=== PATIENT | male | born 1950 | race Caucasian/White ===

== ENCOUNTER 2022-08-20 18:29 | Inpatient (IN) | payer MEDICARE, MEDICAID ==
[~2022-08-20] VITALS: Ht 167.6 cm; Wt 58.1 kg
[2022-08-20] MEDS ORDERED: vancomycin/NS 1 GM ADD-VANTAGE 250 ML IV ONE (18:55)
[2022-08-20] MEDS ORDERED: normal saline 1000ML IV soln IVB ONE (18:55)
[2022-08-20] MEDS ORDERED: piperacillin/tazo 3.375gm/50ml 50 ML IV ONE (18:55)
[2022-08-20 19:10] LABS: BASOPHILS # (AUTO) 0.2 X10'3 (0-0.2); BASOPHILS % (AUTO) 0.9 % (0-1); EOSINOPHILS % (AUTO) 0.2 % (0-6); HEMATOCRIT 41.9 % (42.0-52.0); HEMOGLOBIN 13.2 g/dl (14.0-17.9); LYMPHOCYTES # (AUTO) 1.9 X10'3 (1.1-4.8); LYMPHOCYTES % (AUTO) 10.4 % (21-51); MEAN CORPUSCULAR HEMOGLOBIN 28.1 PG (27.0-31.0); MEAN CORPUSCULAR HGB CONC 31.6 g/dL (33.0-36.5); MEAN PLATELET VOLUME 8.9 FL (7.4-10.4); MONOCYTES # (AUTO) 1.3 X10'3 (0-0.9); NEUTROPHILS # (AUTO) 15.2 X10'3 (1.8-7.7); NEUTROPHILS % (AUTO) 81.5 % (42-75); PLATELET COUNT 277 X10'3 (140-440); RED CELL DISTRIBUTION WIDTH 16.4 % (11.5-14.5); WHITE BLOOD COUNT 18.7 X10'3 (4.5-11.0)
[2022-08-20] MEDS ORDERED: morphine 4 MG/ML inj SYRINge IV ONE (19:25)
[2022-08-20 19:28] LABS: ALANINE AMINOTRANSFERASE 33 U/L (12-78); ALBUMIN/GLOBULIN RATIO 0.6 (1.1-1.5); ALKALINE PHOSPHATASE 110 IU/L (46-116); ANION GAP 7 (8-16); ASPARTATE AMINO TRANSFERASE 30 U/L (10-37); BILIRUBIN,TOTAL 0.2 MG/DL (0.1-1.0); BLOOD UREA NITROGEN 21 MG/DL (7-18); BUN/CREATININE RATIO 22.8 (5.4-32.0); CALCIUM 9.5 MG/DL (8.5-10.1); CHLORIDE 101 MMOL/L (99-107); CREATININE 0.92 MG/DL (0.60-1.10); GLUCOSE 141 MG/DL (70-104); POTASSIUM 4.6 MMOL/L (3.5-5.1); SODIUM 141 MMOL/L (135-145); TOTAL CARBON DIOXIDE 32.7 MMOL/L (24-32); TOTAL PROTEIN 7.9 G/DL (6.4-8.2); eGFR 81 ML/MIN
[2022-08-20] MEDS ORDERED: iohexol 350MG/ML 100ml bottle IV ONE (20:03)
[2022-08-20] MEDS ORDERED: iohexol 350 MG/ML 50ML vial IV ONE (20:03)
[2022-08-20] MEDS: MESSAGE TO NURSING PO NR (20:20)
[2022-08-20 21:01] LABS: CLARITY,URINE CLEAR (Clear); COLOR,URINE YELLOW (Yellow); GLUCOSE, URINE NEGATIVE (Neg); KETONES,URINE NEGATIVE (Neg); LEUKOCYTE ESTERASE ,URINE NEGATIVE (Neg); NITRITES, URINE NEGATIVE (Neg); OCCULT BLOOD,URINE NEGATIVE (Neg); PH,URINE 7.5 (4.8-8.0); PROTEIN,URINE NEGATIVE (Neg); UROBILINOGEN,URINE 0.2 E.U/dL (0.2-1.0)
[2022-08-20 21:06] LABS: UA COLLECTION TYPE NON-SPECIFIED
[2022-08-21] MEDS ORDERED: METF-1203 PO (00:26)
[2022-08-21] MEDS ORDERED: heparin 10,000 units/1 ML INJ IV PRN (00:35)
[2022-08-21] MEDS ORDERED: insulin Lispro (HumaLOG) vial - multi-dose SQ SCH (00:35)
[2022-08-21] MEDS ORDERED: magnesium Cl slow-release 64mg tablet PO PRN (00:35)
[2022-08-21] MEDS ORDERED: ondansetron/PF 4mg/2ml inj IV PRN (00:35)
[2022-08-21] MEDS ORDERED: dextrose 50%-water 50ml dispensing syringe IV PRN ×2 (00:35)
[2022-08-21] MEDS ORDERED: DEXTROSE 15 GM of carb/4 tabs (each vial/BOTTLE has 4 tablets) PO PRN ×2 (00:35)
[2022-08-21] MEDS ORDERED: PERFLUTREN PROTEIN-A MICROSPHR (Optison) 0.22 MG/ML 3ML VIAL IV ONE (00:35)
[2022-08-21] MEDS ORDERED: magnesium 4gm in 100ml NS 100 ML IV PRN (00:35)
[2022-08-21] MEDS ORDERED: MESSAGE TO PHARMACY PO ONE (00:35)
[2022-08-21] MEDS ORDERED: glucagon, human recombinant 1mg kit SUBCUT PRN (00:35)
[2022-08-21] MEDS: normal saline 1000ml 1,000 ML IV SCH ×3 (00:35→19:33)
[2022-08-21] MEDS ORDERED: HYDROcodone/acetaminophen 5mg/325mg tablet PO PRN (00:35)
[2022-08-21] MEDS ORDERED: heparin 10,000 units/1 ML INJ IV ONE ×2 (00:35→02:30)
[2022-08-21] MEDS ORDERED: heparin 25,000 UNIT/250ml bag 250 ML IV PRN (00:35)
[2022-08-21] MEDS ORDERED: acetaminophen 325mg tablet PO PRN (00:35)
[2022-08-21] MEDS ORDERED: mag hydrox/Alum hydrox/simeth 30ml oral suspension PO PRN (00:35)
[2022-08-21] MEDS ORDERED: magnesium hydroxide 30ml (MOM) UD suspension PO PRN (00:35)
[2022-08-21] MEDS ORDERED: potassium Cl 40MEQ/1/2NS 520ml 520 ML IV PRN (00:35)
[2022-08-21] MEDS ORDERED: potassium Cl 20 mEq SR tablet PO PRN ×2 (00:35)
--- NOTE | 2022-08-21 01:21 | NUR ---
PTT and AM labs drawn and sent at this time, pending verification/prep of heparin setup.
[2022-08-21 01:37] LABS: APTT 30 SECONDS (22-32)
[2022-08-21] MEDS: hydrALAZINE 20mg/ml inj. IV PRN (02:05)
[2022-08-21] MEDS: HYDROcodone/acetaminophen 10/325mg tab PO PRN ×3 (02:11→19:33)
--- NOTE | 2022-08-21 02:53 | NUR ---
Change from cardiac heparin to DVT noted, heparin infusion rate updated on pump and in OCT.
--- NOTE | 2022-08-21 05:54 | NUR ---
Patient with ongoing hypertension, provider nofied, advised new PO daily medication. Verbal order will be entered.
[2022-08-21] MEDS ORDERED: vancomycin/NS 1 GM ADD-VANTAGE 250 ML IV SCH (06:00)
[2022-08-21] MEDS: piperacillin/tazo 3.375gm/50ml 50 ML IV SCH ×2 (07:51→16:03)
[2022-08-21] MEDS: metoprolol succinate 25mg (24-HOUR) SR. Tablet PO SCH (07:51)
[2022-08-21] MEDS: docusate sod 100mg capsule PO SCH ×2 (07:52→19:33)
--- NOTE | 2022-08-21 09:49 | NUR ---
PT B.S 104 ,NO INSULIN NEEDED.
[2022-08-21] MEDS: MESSAGE TO NURSING PO NR (10:00)
[2022-08-21] MEDS: heparin 10,000 units/1 ML INJ IV PRN ×2 (10:06→18:05)
[2022-08-21] MEDS: heparin 25,000 UNIT/250ml bag 250 ML IV PRN (10:08)
[2022-08-21 11:26] LABS: BASOPHILS # (AUTO) 0.1 X10'3 (0-0.2); BASOPHILS % (AUTO) 0.9 % (0-1); EOSINOPHILS # (AUTO) 0.1 X10'3 (0-0.9); EOSINOPHILS % (AUTO) 1.1 % (0-6); HEMATOCRIT 40.9 % (42.0-52.0); HEMOGLOBIN 12.8 g/dl (14.0-17.9); LYMPHOCYTES # (AUTO) 1.4 X10'3 (1.1-4.8); LYMPHOCYTES % (AUTO) 10.4 % (21-51); MEAN CORPUSCULAR HEMOGLOBIN 27.8 PG (27.0-31.0); MEAN CORPUSCULAR HGB CONC 31.3 g/dL (33.0-36.5); MEAN CORPUSCULAR VOLUME 88.8 FL (78-98); MONOCYTES # (AUTO) 0.9 X10'3 (0-0.9); MONOCYTES % (AUTO) 6.9 % (2-12); NEUTROPHILS % (AUTO) 80.7 % (42-75); PLATELET COUNT 255 X10'3 (140-440); RED CELL DISTRIBUTION WIDTH 16.4 % (11.5-14.5); WHITE BLOOD COUNT 13.6 X10'3 (4.5-11.0)
--- NOTE | 2022-08-21 11:47 | NUR ---
WOUND CARE EDDY CHAUDHRY AT BEDSIDE.
[2022-08-21] MEDS ORDERED: FINA5TAB11 PO (13:29)
[2022-08-21] MEDS ORDERED: SERT-433 (13:29)
[2022-08-21] MEDS ORDERED: HYDR-3964 PO (13:29)
[2022-08-21] MEDS ORDERED: FOLI1TAB27 PO (13:29)
[2022-08-21] MEDS ORDERED: ASPI-1397 PO (13:29)
[2022-08-21] MEDS ORDERED: ADV50250 PO (13:31)
[2022-08-21] MEDS ORDERED: FLO0.4C PO (13:31)
--- NOTE | 2022-08-21 16:00 | NUR ---
DR AVILA SPOKE WITH DR SCOTT AND HE WILL COME EVALUATE THE PT FOR SURGERY AND TO WAIT TO FEED PT UNTIL WE KNOW THE PLAN FOR SURGERY.
--- NOTE | 2022-08-21 16:11 | NUR ---
PAUL 2003 RE: BED 16 NEERU, OR DOES NOT HAVE PT ON SCHEDULE, ASHLEE NOT HERE, SHOULD WE KEEP NPO?
--- NOTE | 2022-08-21 16:32 | NUR ---
PRESSURE ULCER EDUCATION: DEFINITION: A pressure ulcer is an area of skin that breaks down when you stay in one position too long. The constant pressure against the skin reduces the blood flow to that area and the affected tissue dies. CAUSES: "Being bedridden or in a wheelchair "Fragile skin "Having a chronic condition, such as diabetes or vascular disease "Inability to move certain parts of your body without assistance "Older age "Incontinence of urine or stool SYMPTOMS: "A reddened area that DOES NOT turn white when pressed on - this can be the beginning of a pressure ulcer "A blister, deep sore or a crater - these can be advanced pressure ulcers FIRST AID: "Relieve the pressure on this area "Keep the area clean and dry "Call your primary doctor if you see any of the above symptoms "DO NOT massage the area "DO NOT use a donut shaped or ring shaped pillow- these actually interfere with the blood flow and cause complications PREVENTION: "Check for pressure ulcers everyday "Change position at least every two hours to relieve pressure "Use items that help relieve pressure- pillows, sheepskin, foam padding, and powders. "Keep skin clean and dry "Eat healthy well balanced meals "Exercise daily IF YOU SEE ANY OF THESE SYMPTOMS WHILE IN THE HOSPITAL - TELL YOUR NURSE IMMEDIATELY. IF YOU SEE ANY OF THESE SYMPTOMS WHILE AT HOME OR HAVE ANY QUESTIONS OR CONCERNS ABOUT PRESSURE ULCERS - CALL YOUR PRIMARY DOCTOR IMMEDIATELY. Addendum: 08/21/22 at 1632 by Dalia Fox LVN Amended: Links added.
[2022-08-21] MEDS: vancomycin/NS 1 GM ADD-VANTAGE 250 ML IV SCH (17:56)
--- NOTE | 2022-08-21 18:32 | NUR ---
Report called to Barry who kindly accepts report for Surg 343, patient cleared for transport.
--- NOTE | 2022-08-21 18:33 | NUR ---
REPORT RECEIVED FROM JET MECHANIC. PATIENT ON THE WAY AND WILL ASSUME CARE WHEN PATIENT ARRIVES.
[2022-08-21 19:00] VITALS: BP 142/85
[2022-08-21] MEDS: insulin glargine (Lantus) pen - multi-dose SQ SCH (21:00)
[2022-08-21 22:00] VITALS: BP 151/55
[2022-08-22] MEDS: piperacillin/tazo 3.375gm/50ml 50 ML IV SCH ×3 (00:35→15:38)
[2022-08-22 00:55] LABS: BASOPHILS # (AUTO) 0.1 X10'3 (0-0.2); BASOPHILS % (AUTO) 0.6 % (0-1); EOSINOPHILS # (AUTO) 0.1 X10'3 (0-0.9); EOSINOPHILS % (AUTO) 0.7 % (0-6); HEMATOCRIT 36.7 % (42.0-52.0); HEMOGLOBIN 11.9 g/dl (14.0-17.9); LYMPHOCYTES # (AUTO) 1.6 X10'3 (1.1-4.8); LYMPHOCYTES % (AUTO) 11.4 % (21-51); MEAN CORPUSCULAR HEMOGLOBIN 28.5 PG (27.0-31.0); MEAN CORPUSCULAR HGB CONC 32.5 g/dL (33.0-36.5); MEAN CORPUSCULAR VOLUME 87.9 FL (78-98); MEAN PLATELET VOLUME 9.3 FL (7.4-10.4); MONOCYTES # (AUTO) 0.8 X10'3 (0-0.9); MONOCYTES % (AUTO) 5.8 % (2-12); NEUTROPHILS # (AUTO) 11.3 X10'3 (1.8-7.7); NEUTROPHILS % (AUTO) 81.5 % (42-75); PLATELET COUNT 257 X10'3 (140-440); RED BLOOD COUNT 4.17 X10'6 (4.70-6.10); RED CELL DISTRIBUTION WIDTH 16.1 % (11.5-14.5); WHITE BLOOD COUNT 13.8 X10'3 (4.5-11.0)
[2022-08-22 01:08] LABS: ALANINE AMINOTRANSFERASE 29 U/L (12-78); ALBUMIN 2.7 G/DL (3.4-5.0); ALBUMIN/GLOBULIN RATIO 0.6 (1.1-1.5); ALKALINE PHOSPHATASE 82 IU/L (46-116); ANION GAP 7 (8-16); ASPARTATE AMINO TRANSFERASE 21 U/L (10-37); BILIRUBIN,TOTAL 0.3 MG/DL (0.1-1.0); BLOOD UREA NITROGEN 13 MG/DL (7-18); BUN/CREATININE RATIO 15.7 (5.4-32.0); CALCIUM 8.9 MG/DL (8.5-10.1); CHLORIDE 103 MMOL/L (99-107); CREATININE 0.83 MG/DL (0.60-1.10); GLUCOSE 182 MG/DL (70-104); MAGNESIUM 1.8 MG/DL (1.5-2.4); POTASSIUM 4.2 MMOL/L (3.5-5.1); SODIUM 140 MMOL/L (135-145); VANCOMYCIN,TROUGH 16.6 UG/ML (6.0-14.0); eGFR > 90 ML/MIN
[2022-08-22] MEDS: heparin 10,000 units/1 ML INJ IV PRN ×3 (01:20→22:36)
[2022-08-22 02:38] LABS: HEMOGLOBIN A1C 7.6 % (4.5-6.2)
[2022-08-22] MEDS ORDERED: VANCOMYCIN LEVEL IV ONE (04:30)
[2022-08-22] MEDS: vancomycin/NS 1 GM ADD-VANTAGE 250 ML IV SCH ×2 (04:55→17:17)
--- NOTE | 2022-08-22 06:21 | NUR ---
Problems reprioritized. Patient report given, questions answered & plan of care reviewed with JANY RAMIREZ.
--- NOTE | 2022-08-22 06:45 | NUR ---
Patient in room [facility] 343. I have received report from Melissa RAMIREZ and had the opportunity to ask questions and assume patient care.
[2022-08-22 07:08] VITALS: BP 135/65
[2022-08-22] MEDS: metoprolol succinate 25mg (24-HOUR) SR. Tablet PO SCH (07:25)
[2022-08-22] MEDS: docusate sod 100mg capsule PO SCH ×2 (07:25→19:47)
[2022-08-22 10:00] VITALS: BP 104/54
[2022-08-22] MEDS: MESSAGE TO NURSING PO NR (10:00)
[2022-08-22] MEDS: heparin 25,000 UNIT/250ml bag 250 ML IV PRN ×2 (10:38→12:38)
[2022-08-22] MEDS: morphine 2 MG/ML inj. syringe IV PRN (11:38)
[2022-08-22] MEDS: normal saline 1000ml 1,000 ML IV SCH (12:24)
--- NOTE | 2022-08-22 13:56 | NUR ---
DM consult: Per EMR pt with T2DM, well controlled with A1c 7.6%, written DM education with RD contact information placed in patient's chart. Per EMR pt with gangrenous left foot, wound care has been consulted, pending assessment at this time. Pt with an active CHO controlled diet order however documented to be NPO. Will continue to follow and monitor need for nutrition intervention pending wound care assessment and trends in PO intake. Addendum: 08/22/22 at [address] Amended: Links added.
[2022-08-22] MEDS: HYDROcodone/acetaminophen 10/325mg tab PO PRN ×2 (15:29→19:47)
--- NOTE | 2022-08-22 17:31 | NUR ---
patient PTT 139 heparin stopped . seen by Dr rojas and Dr peralta, is for surgery tomorrow per Dr peralta. [place] and morphine given for pain with mod effect see EMAR. will continue to monitor
[2022-08-22 18:00] VITALS: BP 140/61
--- NOTE | 2022-08-22 18:18 | NUR ---
Patient in room [facility] 343. I have received report from JANY RAMIREZ and had the opportunity to ask questions and assume patient care.
--- NOTE | 2022-08-22 18:20 | NUR ---
Problems reprioritized. Patient report given, questions answered & plan of care reviewed with Prudence RN.
[2022-08-22] MEDS: insulin glargine (Lantus) pen - multi-dose SQ SCH (21:00)
[2022-08-22 22:00] VITALS: BP 155/64
[2022-08-23] VITALS (17 sets, daily range): BP systolic 14–199; BP diastolic 60–100
[2022-08-23] MEDS: piperacillin/tazo 3.375gm/50ml 50 ML IV SCH ×3 (00:41→16:31)
[2022-08-23] MEDS: HYDROcodone/acetaminophen 10/325mg tab PO PRN ×3 (04:11→22:40)
[2022-08-23] MEDS: vancomycin/NS 1 GM ADD-VANTAGE 250 ML IV SCH ×2 (04:14→18:05)
--- NOTE | 2022-08-23 06:45 | NUR ---
Problems reprioritized. Patient report given, questions answered & plan of care reviewed with JANY RAMIREZ.
--- NOTE | 2022-08-23 06:58 | NUR ---
Patient in room [facility] 343. I have received report from Melissa RAMIREZ and had the opportunity to ask questions and assume patient care.
[2022-08-23 07:15] LABS: BASOPHILS # (AUTO) 0.1 X10'3 (0-0.2); EOSINOPHILS # (AUTO) 0.2 X10'3 (0-0.9); EOSINOPHILS % (AUTO) 1.4 % (0-6); HEMATOCRIT 38.6 % (42.0-52.0); HEMOGLOBIN 12.2 g/dl (14.0-17.9); LYMPHOCYTES # (AUTO) 1.6 X10'3 (1.1-4.8); LYMPHOCYTES % (AUTO) 11.9 % (21-51); MEAN CORPUSCULAR HGB CONC 31.7 g/dL (33.0-36.5); MEAN CORPUSCULAR VOLUME 88.5 FL (78-98); MEAN PLATELET VOLUME 9.3 FL (7.4-10.4); MONOCYTES # (AUTO) 0.9 X10'3 (0-0.9); MONOCYTES % (AUTO) 6.9 % (2-12); NEUTROPHILS # (AUTO) 10.5 X10'3 (1.8-7.7); NEUTROPHILS % (AUTO) 78.8 % (42-75); PLATELET COUNT 267 X10'3 (140-440); RED BLOOD COUNT 4.36 X10'6 (4.70-6.10); RED CELL DISTRIBUTION WIDTH 16.3 % (11.5-14.5); WHITE BLOOD COUNT 13.3 X10'3 (4.5-11.0)
[2022-08-23] MEDS: metoprolol succinate 25mg (24-HOUR) SR. Tablet PO SCH (07:47)
[2022-08-23] MEDS: docusate sod 100mg capsule PO SCH ×2 (08:00→19:58)
[2022-08-23 08:05] LABS: ALANINE AMINOTRANSFERASE 24 U/L (12-78); ALBUMIN 2.6 G/DL (3.4-5.0); ALBUMIN/GLOBULIN RATIO 0.6 (1.1-1.5); ALKALINE PHOSPHATASE 91 IU/L (46-116); ANION GAP 9 (8-16); ASPARTATE AMINO TRANSFERASE 25 U/L (10-37); BILIRUBIN,TOTAL 0.4 MG/DL (0.1-1.0); BLOOD UREA NITROGEN 13 MG/DL (7-18); BUN/CREATININE RATIO 14.6 (5.4-32.0); CALCIUM 8.7 MG/DL (8.5-10.1); CHLORIDE 103 MMOL/L (99-107); CREATININE 0.89 MG/DL (0.60-1.10); GLUCOSE 132 MG/DL (70-104); MAGNESIUM 2.1 MG/DL (1.5-2.4); POTASSIUM 3.4 MMOL/L (3.5-5.1); SODIUM 139 MMOL/L (135-145); TOTAL CARBON DIOXIDE 27.3 MMOL/L (24-32); TOTAL PROTEIN 7.1 G/DL (6.4-8.2); eGFR 84 ML/MIN
[2022-08-23] MEDS: normal saline 1000ml 1,000 ML IV SCH ×2 (08:16→22:39)
--- NOTE | 2022-08-23 10:08 | NUR ---
patient transported to recovery awaiting surgery. report given to Jaimie. RN heparin turned off [address] peralta.
[2022-08-23] MEDS ORDERED: ringers solution, lacted 1,000 ML IV SCH (12:20)
[2022-08-23] MEDS ORDERED: ondansetron/PF 4mg/2ml inj IV PRN (12:20)
[2022-08-23] MEDS ORDERED: HYDROmorphone/PF 0.2 MG/ML SYRINGE IV PRN ×2 (12:20)
[2022-08-23] MEDS ORDERED: sevoflurane 250ml liquid IH ONE (12:38)
[2022-08-23] MEDS ORDERED: fentaNYL/PF 50MCG/1 ML 2ML syringe ONE (12:39)
[2022-08-23] MEDS ORDERED: midazolam 1 mg/ML 2ml injection ONE (13:07)
[2022-08-23] MEDS ORDERED: ketamine 50mg/5ml syringe ONE (13:09)
[2022-08-23] MEDS ORDERED: LIDOcaine 2% (20mg/ml) 5ml vial ONE (13:45)
[2022-08-23] MEDS ORDERED: propofol inj 20 ML IV ONE (13:45)
[2022-08-23] MEDS ORDERED: rocuronium 10mg/ml inj IV ONE (13:45)
[2022-08-23] MEDS ORDERED: dexamethasone sod phosphate 4mg/ml inj. ONE (13:45)
[2022-08-23] MEDS ORDERED: ondansetron/PF 4mg/2ml inj ONE (13:45)
[2022-08-23] MEDS ORDERED: glycopyrrolate 0.2mg/ml inj ONE (13:51)
[2022-08-23] MEDS ORDERED: neostigmine methylsulfate 1 MG/ML 10ml vial ONE (13:51)
[2022-08-23] MEDS ORDERED: ePHEDrine 50MG/ML INJ. ONE (14:04)
[2022-08-23] MEDS ORDERED: morphine 4 MG/ML inj SYRINge ONE (14:07)
--- NOTE | 2022-08-23 14:15 | NUR ---
Received from OR via , accompanied by Anesthesiologist DR FERNANDEZ and report given by Anesthesiolgist. PT IS AWAKE BUT CONFUSED, SKIN WARM AND PINK, RESTLESS IN BED, PIV LEFT AC 20G WITH LR, LEFT BKA DRESSING CD WITH STUMP SOCK, MORPHINE GIVEN FOR PAIN AND ZOFRAN GIVEN FOR NAUSEA.
[2022-08-23 14:29] LABS: ISTAT ANION GAP 7 (8-12); ISTAT BUN 10 mg/dL (7-18); ISTAT CL 105 mmol/L (99-107); ISTAT CREATININE 0.7 mg/dL (0.8-1.3); ISTAT GLUCOSE 108 mg/dL (70-104); ISTAT HGB 13.3 g/dl (14.0-17.9); ISTAT Hct 39 %PCV (42-52); ISTAT IONIZED CALCIUM 1.23 mmol/L (1.03-1.32); ISTAT NA 142 mmol/L (135-145); ISTAT TOTAL CO2 30 mmol/L (24-32); ISTAT eGFR > 90 ML/MIN; POC BUN/CREATININE RATIO 14.3 (5.4-32.0)
[2022-08-23] MEDS: morphine 2 MG/ML inj. syringe IV PRN ×5 (14:32→19:58)
[2022-08-23] MEDS: hydrALAZINE 20mg/ml inj. IV PRN (15:10)
--- NOTE | 2022-08-23 15:33 | NUR ---
Report called to receiving nurse. Transferred via BED Belongings . Special Issues communicated to receiving nurse JANY RAMIREZ. PT IS AWAKE AND ORIENTED, MOVING ALL EXT, PIV LEFT AC PATENT, STUMP DRESSING CD, BP LOWERED TO WNL WITH 10MG HYDRALAZINE, MORPHINE AND DILAUDID FOR PAIN, PT REFUSED ICE CHIPS AND WATER, SCD'S, PT MEETS DISCHARGE CRITERA, RECEIVING NURSE AT LUNCH. WILL TRANSPORT WHEN SHE IS AVAILABLE. Addendum: 08/23/22 at 1611 by Jillian Mcginnis RN TRANSFER TO FLOOR AT 1555
--- NOTE | 2022-08-23 16:15 | NUR ---
Patient in room PACU 6. I have received report from najma RAMIREZ and had the opportunity to ask questions and assume patient care.patient states he is very painful. medicated in recovery room just prior to transfer per najma RN will reassess pain meds. Dressing to left stump CDI.
--- NOTE | 2022-08-23 18:38 | NUR ---
Patient in room [facility] 343. I have received report from JANY RAMIREZ and had the opportunity to ask questions and assume patient care.
--- NOTE | 2022-08-23 18:47 | NUR ---
patient very painful seen by dr rojas increase in pain meds ordered. new PIV placed left wrist. Report given to Nestorncmary RN
[2022-08-23] MEDS: insulin glargine (Lantus) pen - multi-dose SQ SCH (21:00)
[2022-08-23] MEDS ORDERED: LIDOcaine 2% 10ml TOPICAL JELLY (Urojet) TP ONE (21:15)
[2022-08-24] MEDS: piperacillin/tazo 3.375gm/50ml 50 ML IV SCH ×2 (03:07→08:10)
[2022-08-24] MEDS: morphine 2 MG/ML inj. syringe IV PRN ×3 (03:07→19:32)
[2022-08-24] MEDS: vancomycin/NS 1 GM ADD-VANTAGE 250 ML IV SCH ×2 (05:34→17:06)
[2022-08-24] MEDS: HYDROcodone/acetaminophen 10/325mg tab PO PRN ×4 (05:35→23:56)
[2022-08-24 06:00] VITALS: BP 99/54
[2022-08-24 06:31] LABS: BASOPHILS # (AUTO) 0.1 X10'3 (0-0.2); BASOPHILS % (AUTO) 0.9 % (0-1); EOSINOPHILS % (AUTO) 0 % (0-6); HEMATOCRIT 35.8 % (42.0-52.0); HEMOGLOBIN 11.4 g/dl (14.0-17.9); LYMPHOCYTES # (AUTO) 0.8 X10'3 (1.1-4.8); LYMPHOCYTES % (AUTO) 5.6 % (21-51); MEAN CORPUSCULAR HGB CONC 31.9 g/dL (33.0-36.5); MEAN CORPUSCULAR VOLUME 87.9 FL (78-98); MEAN PLATELET VOLUME 9.6 FL (7.4-10.4); MONOCYTES % (AUTO) 6.5 % (2-12); NEUTROPHILS # (AUTO) 12.9 X10'3 (1.8-7.7); PLATELET COUNT 270 X10'3 (140-440); RED BLOOD COUNT 4.07 X10'6 (4.70-6.10); RED CELL DISTRIBUTION WIDTH 16.1 % (11.5-14.5); WHITE BLOOD COUNT 14.8 X10'3 (4.5-11.0)
--- NOTE | 2022-08-24 06:34 | NUR ---
Problems reprioritized. Patient report given, questions answered & plan of care reviewed with FAUSTINO RAMIREZ.
[2022-08-24 06:51] LABS: ALANINE AMINOTRANSFERASE 23 U/L (12-78); ALBUMIN 2.5 G/DL (3.4-5.0); ALBUMIN/GLOBULIN RATIO 0.6 (1.1-1.5); ALKALINE PHOSPHATASE 76 IU/L (46-116); ANION GAP 6 (8-16); ASPARTATE AMINO TRANSFERASE 35 U/L (10-37); BILIRUBIN,TOTAL 0.3 MG/DL (0.1-1.0); BLOOD UREA NITROGEN 14 MG/DL (7-18); BUN/CREATININE RATIO 16.3 (5.4-32.0); CALCIUM 8.4 MG/DL (8.5-10.1); CHLORIDE 104 MMOL/L (99-107); CREATININE 0.86 MG/DL (0.60-1.10); GLUCOSE 198 MG/DL (70-104); POTASSIUM 3.7 MMOL/L (3.5-5.1); SODIUM 139 MMOL/L (135-145); TOTAL CARBON DIOXIDE 28.6 MMOL/L (24-32); TOTAL PROTEIN 6.6 G/DL (6.4-8.2); eGFR 87 ML/MIN
[2022-08-24] MEDS: docusate sod 100mg capsule PO SCH (08:00)
[2022-08-24] MEDS: metoprolol succinate 25mg (24-HOUR) SR. Tablet PO SCH (08:06)
[2022-08-24 11:00] VITALS: BP 139/74
[2022-08-24] MEDS: normal saline 1000ml 1,000 ML IV SCH ×2 (11:36→23:56)
--- NOTE | 2022-08-24 13:20 | NUR ---
Initial: Pt admit DX LLE ischemia w/ necrosis/gangrene L foot, HTN, T2DM, and now s/p L BKA yesterday per EMR. PO 88-100% first two documented carb controlled meals this admit unable to determine nutrition status given this though likely partially meeting needs given NPO periods. Pt seen by RD for written/verbal high protein diet ed w/ RD contact information provided. Pt is agreeable to strawberry Jonathan smoothie BIDLD; MD notified. RD encouraged pt to contact dietitian's office if further nutrition questions/concerns. Pt visibly edentulous though declines issues w/ PO. LBM 08/23. Will monitor for further nutrition intervention needs this admit. Rec: 1. continue carb controlled diet per MD; encourage PO 2. strawberry Jonathan smoothie BIDLD for wound healing; pending MD verification in EMR 3. MVI for wound healing per physician discretion 4. routine bowel care 5. weekly wts Addendum: 08/24/22 at [address] Amended: Links added.
[2022-08-24] MEDS: JUVEN Smoothie Arginine/Glut./Ca2+Bmb (Juven 19.3pkt) 240ml cup PO SCH (17:30)
[2022-08-24 18:00] VITALS: BP 173/86
--- NOTE | 2022-08-24 18:20 | NUR ---
Patient in room JUAN 356. I have received report from ASHLEY Ewing and had the opportunity to ask questions and assume patient care. Patient resting comfortably on bed, only complaint is Lt BKA pain s/p surgery on 08/23. I will check eMAR for pain meds.
[2022-08-24] MEDS: hydrALAZINE 20mg/ml inj. IV PRN (19:33)
[2022-08-24] MEDS: insulin glargine (Lantus) pen - multi-dose SQ SCH (21:00)
[2022-08-24 22:00] VITALS: BP 146/74
[2022-08-25] MEDS: HYDROcodone/acetaminophen 10/325mg tab PO PRN ×3 (04:22→20:59)
[2022-08-25] MEDS: vancomycin/NS 1 GM ADD-VANTAGE 250 ML IV SCH ×2 (04:34→17:38)
--- NOTE | 2022-08-25 06:21 | NUR ---
Problems reprioritized. Patient report given, questions answered & plan of care reviewed with ASHLEY Ewing.
[2022-08-25 06:56] LABS: BASOPHILS # (AUTO) 0.1 X10'3 (0-0.2); BASOPHILS % (AUTO) 0.6 % (0-1); EOSINOPHILS % (AUTO) 0.2 % (0-6); HEMOGLOBIN 11.3 g/dl (14.0-17.9); LYMPHOCYTES # (AUTO) 1.5 X10'3 (1.1-4.8); LYMPHOCYTES % (AUTO) 10.3 % (21-51); MEAN CORPUSCULAR HEMOGLOBIN 28.5 PG (27.0-31.0); MEAN CORPUSCULAR HGB CONC 32.3 g/dL (33.0-36.5); MEAN CORPUSCULAR VOLUME 88.3 FL (78-98); MEAN PLATELET VOLUME 9.3 FL (7.4-10.4); MONOCYTES # (AUTO) 1.4 X10'3 (0-0.9); MONOCYTES % (AUTO) 9.5 % (2-12); NEUTROPHILS # (AUTO) 11.5 X10'3 (1.8-7.7); NEUTROPHILS % (AUTO) 79.4 % (42-75); PLATELET COUNT 256 X10'3 (140-440); RED BLOOD COUNT 3.96 X10'6 (4.70-6.10); RED CELL DISTRIBUTION WIDTH 16.3 % (11.5-14.5); WHITE BLOOD COUNT 14.4 X10'3 (4.5-11.0)
[2022-08-25 07:00] VITALS: BP 158/79
[2022-08-25 07:07] LABS: ALANINE AMINOTRANSFERASE 28 U/L (12-78); ALBUMIN 2.5 G/DL (3.4-5.0); ALBUMIN/GLOBULIN RATIO 0.6 (1.1-1.5); ALKALINE PHOSPHATASE 88 IU/L (46-116); ANION GAP 5 (8-16); ASPARTATE AMINO TRANSFERASE 45 U/L (10-37); BILIRUBIN,TOTAL 0.5 MG/DL (0.1-1.0); BLOOD UREA NITROGEN 10 MG/DL (7-18); CALCIUM 8.3 MG/DL (8.5-10.1); CHLORIDE 102 MMOL/L (99-107); CREATININE 0.77 MG/DL (0.60-1.10); GLUCOSE 101 MG/DL (70-104); MAGNESIUM 1.8 MG/DL (1.5-2.4); POTASSIUM 3.4 MMOL/L (3.5-5.1); SODIUM 138 MMOL/L (135-145); TOTAL CARBON DIOXIDE 30.6 MMOL/L (24-32); TOTAL PROTEIN 6.7 G/DL (6.4-8.2); eGFR > 90 ML/MIN
[2022-08-25] MEDS: metoprolol succinate 25mg (24-HOUR) SR. Tablet PO SCH (08:15)
--- NOTE | 2022-08-25 09:35 | NUR ---
Call out to Dr Tate for PT order.
[2022-08-25 11:00] VITALS: BP 162/87
[2022-08-25] MEDS: JUVEN Smoothie Arginine/Glut./Ca2+Bmb (Juven 19.3pkt) 240ml cup PO SCH ×2 (12:30→19:21)
[2022-08-25] MEDS: normal saline 1000ml 1,000 ML IV SCH (14:16)
[2022-08-25 18:00] VITALS: BP 194/102
[2022-08-25 19:00] VITALS: BP 174/89
[2022-08-25] MEDS: hydrALAZINE 20mg/ml inj. IV PRN (19:22)
[2022-08-25] MEDS: gabapentin 300mg capsule PO SCH (20:09)
[2022-08-25] MEDS: insulin glargine (Lantus) pen - multi-dose SQ SCH (20:58)
[2022-08-25 22:00] VITALS: BP 164/83
[2022-08-26] MEDS: normal saline 1000ml 1,000 ML IV SCH ×2 (03:36→09:27)
[2022-08-26] MEDS: vancomycin/NS 1 GM ADD-VANTAGE 250 ML IV SCH (06:28)
--- NOTE | 2022-08-26 06:36 | NUR ---
Patient in room JUAN 356. I have received report from ASHLEY Walsh and had the opportunity to ask questions and assume patient care.
[2022-08-26 06:51] VITALS: BP 170/80
[2022-08-26] MEDS: HYDROcodone/acetaminophen 10/325mg tab PO PRN ×2 (07:10→13:14)
[2022-08-26] MEDS: metoprolol succinate 25mg (24-HOUR) SR. Tablet PO SCH (07:11)
[2022-08-26] MEDS: gabapentin 300mg capsule PO SCH ×2 (07:11)
[2022-08-26 07:34] LABS: BASOPHILS % (AUTO) 0.4 % (0-1); EOSINOPHILS # (AUTO) 0.1 X10'3 (0-0.9); EOSINOPHILS % (AUTO) 0.6 % (0-6); HEMATOCRIT 37.4 % (42.0-52.0); HEMOGLOBIN 12.2 g/dl (14.0-17.9); LYMPHOCYTES # (AUTO) 1.7 X10'3 (1.1-4.8); LYMPHOCYTES % (AUTO) 13.8 % (21-51); MEAN CORPUSCULAR HEMOGLOBIN 28.8 PG (27.0-31.0); MEAN CORPUSCULAR HGB CONC 32.7 g/dL (33.0-36.5); MEAN PLATELET VOLUME 9.4 FL (7.4-10.4); MONOCYTES # (AUTO) 1.1 X10'3 (0-0.9); MONOCYTES % (AUTO) 8.9 % (2-12); NEUTROPHILS # (AUTO) 9.7 X10'3 (1.8-7.7); NEUTROPHILS % (AUTO) 76.3 % (42-75); PLATELET COUNT 236 X10'3 (140-440); RED BLOOD COUNT 4.25 X10'6 (4.70-6.10); RED CELL DISTRIBUTION WIDTH 16.3 % (11.5-14.5); WHITE BLOOD COUNT 12.7 X10'3 (4.5-11.0)
[2022-08-26 07:55] LABS: ALANINE AMINOTRANSFERASE 28 U/L (12-78); ALBUMIN 2.4 G/DL (3.4-5.0); ALBUMIN/GLOBULIN RATIO 0.6 (1.1-1.5); ALKALINE PHOSPHATASE 85 IU/L (46-116); ANION GAP 7 (8-16); ASPARTATE AMINO TRANSFERASE 37 U/L (10-37); BILIRUBIN,TOTAL 0.4 MG/DL (0.1-1.0); BLOOD UREA NITROGEN 11 MG/DL (7-18); BUN/CREATININE RATIO 14.1 (5.4-32.0); CALCIUM 8.7 MG/DL (8.5-10.1); CHLORIDE 102 MMOL/L (99-107); CREATININE 0.78 MG/DL (0.60-1.10); GLUCOSE 99 MG/DL (70-104); MAGNESIUM 1.9 MG/DL (1.5-2.4); POTASSIUM 3.4 MMOL/L (3.5-5.1); SODIUM 139 MMOL/L (135-145); TOTAL CARBON DIOXIDE 29.8 MMOL/L (24-32); TOTAL PROTEIN 6.7 G/DL (6.4-8.2); eGFR > 90 ML/MIN
[2022-08-26 09:22] VITALS: BP 167/78
[2022-08-26] MEDS: hydrALAZINE 20mg/ml inj. IV PRN (09:27)
--- NOTE | 2022-08-26 12:00 | NUR ---
Patient sleeping when awaken to get BG. Patient refused.
[2022-08-26 12:47] VITALS: BP 108/60
[2022-08-26] MEDS ORDERED: potassium Cl 20 mEq SR tablet PO STA (12:57)
[2022-08-26] MEDS: JUVEN Smoothie Arginine/Glut./Ca2+Bmb (Juven 19.3pkt) 240ml cup PO SCH (13:16)
--- NOTE | 2022-08-26 15:01 | NUR ---
Called report to EDDY Colindres at [facility]. Patient dc'd and transferred to [facility] with all personal belongings while this RN was at lunch and resource RN Katie hardy.
== END 2022-08-26 14:43 | DRG 240 ==
LOC: ER 18:30 → ED HOLD 08-21 00:40 → EDBEDREQ 08-21 18:23 → SUR 3N 08-21 19:10 → PACU 08-23 13:48 → SUR 3N 08-23 16:08
PROVIDERS: ADMIT Family Medicine; ATTEND Family Medicine
PROC: B4201ZZ Computerized Tomography (CT Scan) of Abdominal Aorta using Low Osmolar Contrast (ICD-10-PCS; 2022-08-20)
PROC: B4241ZZ Computerized Tomography (CT Scan) of Superior Mesenteric Artery using Low Osmolar Contrast (ICD-10-PCS; 2022-08-20)
PROC: B4281ZZ Computerized Tomography (CT Scan) of Bilateral Renal Arteries using Low Osmolar Contrast (ICD-10-PCS; 2022-08-20)
PROC: B42C1ZZ Computerized Tomography (CT Scan) of Pelvic Arteries using Low Osmolar Contrast (ICD-10-PCS; 2022-08-20)
PROC: B42H1ZZ Computerized Tomography (CT Scan) of Bilateral Lower Extremity Arteries using Low Osmolar Contrast (ICD-10-PCS; 2022-08-20)
PROC: B4211ZZ Computerized Tomography (CT Scan) of Celiac Artery using Low Osmolar Contrast (ICD-10-PCS; 2022-08-20)
PROC: 0Y6J0Z1 Detachment at Left Lower Leg, High, Open Approach (ICD-10-PCS; principal; 2022-08-23 12:38)
DX: E11.52 Type 2 diabetes mellitus with diabetic peripheral angiopathy with gangrene (principal); L03.116 Cellulitis of left lower limb; Z79.899 Other long term (current) drug therapy; F17.200 Nicotine dependence, unspecified, uncomplicated; F32.A Depression, unspecified; I10 Essential (primary) hypertension; J44.9 Chronic obstructive pulmonary disease, unspecified; Z80.3 Family history of malignant neoplasm of breast; Z71.6 Tobacco abuse counseling; Z79.82 Long term (current) use of aspirin
CPT/HCPCS: 36415; 71045; 75635; 80047; 80053; 80202; 81003; 82948; 83036; 83605; 83735; 84145; 85025; 85610; 85730; 87040; 87081; 88307; 93005; 93306; 96365; 96367; 96375; 97161; 97530; 99285; A4346; A4615; A4618; A6222; A6223; A6253; A6258; A6446; A6449; A7000; G0378; J0360; J1100; J1170; J1644; J1815; J2250; J2270; J2405; J2543; J2704; J2710; J3010; J3370; J3490; J7030; Q9967